=== PATIENT | male | born 1990 | race Caucasian/White ===

== ENCOUNTER 2017-04-14 19:58 | Emergency (ER) | payer MEDICAID ==
[~2017-04-14] VITALS: Ht 180.3 cm; Wt 63.2 kg
[2017-04-14 23:52] VITALS: BP 116/67
== END 2017-04-14 23:52 | disposition home or self-care (01) ==
LOC: ED 19:58
DX: S06.0X9A Concussion with loss of consciousness of unspecified duration, initial encounter (principal); Y08.89XA Assault by other specified means, initial encounter; Y93.89 Activity, other specified; Y92.89 Other specified places as the place of occurrence of the external cause; Y99.8 Other external cause status
CPT/HCPCS: J1885

== ENCOUNTER 2017-04-22 12:57 | Emergency (ER) | payer MEDICAID ==
[2017-04-22 13:23] VITALS: BP 125/63
== END 2017-04-22 14:05 | disposition home or self-care (01) ==
LOC: ED 12:57
DX: S01.01XD Laceration without foreign body of scalp, subsequent encounter (principal); X58.XXXD Exposure to other specified factors, subsequent encounter